=== PATIENT | male | born 1995 | race Caucasian/White ===

== ENCOUNTER 2017-05-15 22:44 | Emergency (ER) | payer MEDICAID ==
[2017-05-16 00:21] VITALS: BP 135/90
== END 2017-05-16 00:21 | disposition home or self-care (01) ==
LOC: ED 22:44
DX: S90.32XA Contusion of left foot, initial encounter (principal); W20.8XXA Other cause of strike by thrown, projected or falling object, initial encounter; Y93.89 Activity, other specified; Y92.89 Other specified places as the place of occurrence of the external cause; Y99.8 Other external cause status
CPT/HCPCS: Q0092

== ENCOUNTER 2017-08-13 16:14 | Emergency (ER) | payer MEDICAID ==
[2017-08-13 16:22] VITALS: BP 124/91
== END 2017-08-13 17:30 | disposition home or self-care (01) ==
LOC: ED 16:14
DX: T78.40XA Allergy, unspecified, initial encounter (principal); X58.XXXA Exposure to other specified factors, initial encounter

== ENCOUNTER 2018-06-24 11:46 | Emergency (ER) | payer MEDICAID ==
[~2018-06-24] VITALS: Ht 170.2 cm; Wt 87.7 kg
[2018-06-24 11:51] VITALS: BP 137/84; Ht 170.2 cm; Wt 87.7 kg
== END 2018-06-24 13:46 | disposition left against medical advice (07) ==
LOC: ED 11:46
DX: Z53.21 Procedure and treatment not carried out due to patient leaving prior to being seen by health care provider (principal)

== ENCOUNTER 2018-12-02 20:41 | Emergency (ER) | payer MEDICAID ==
[~2018-12-02] VITALS: Ht 167.6 cm; Wt 90.7 kg
[2018-12-02 21:46] VITALS: BP 118/87; Ht 167.6 cm; Wt 90.7 kg
== END 2018-12-02 22:37 | disposition left against medical advice (07) ==
LOC: ED 20:41
DX: Z53.21 Procedure and treatment not carried out due to patient leaving prior to being seen by health care provider (principal)